=== PATIENT | female | born 1935 | race Caucasian/White ===

== ENCOUNTER 2020-03-06 14:53 | Inpatient (IN) | payer OTHER ==
[~2020-03-06] VITALS: Ht 165.1 cm; Wt 67.3 kg
[~2020-03-06 14:53] MED LIST: BACTRIM DS TAB1 EACH PO; BYSTOLIC 5 MG5 M1 PO; COZAAR 25 MG TA25 M1 PO; ELIQUIS5 MG PO; LIPITOR40 MG PO; METAMUCIL0.52 GM PO; METOPROLOL TART25 MG PO; NASAL SPRAY ORI30 ML; NEOFRIN NS; NITROFURANTOIN100 MG PO; PHENAZOPYRIDIN200 M2 PO; PREDNISONE 10 M10 M1; PREMARIN0.625 MG PO; PRILOSEC40 MG PO; PROTONIX40 M2; RESTORIL15 MG PO; VITAMIN D1000 UNI1 PO; ZOFRAN ODT4 MG PO
[2020-03-06 16:16] VITALS: BP 146/61
--- NOTE | 2020-03-06 17:49 | NUR ---
PATIENT ADMIT TO [facility] AT 1545 FROM [facility]. COVID POSITIVE. A/O X4. GENERLIZED WEAKNESS, VSS , AFEBRILE. LOOSE STOOL. WILL KEEP MONITOR.
[2020-03-06 20:34] VITALS: BP 124/63
--- NOTE | 2020-03-07 01:36 | NUR ---
ASSUMED PT CARE AROUND 1930. ALERT AND ORIENTED. VSS. NO S/S ACUTE DISTRESS NOTED OR REPORTED AT THIS TIME. WILL CONT TO MONITOR FOR ANY CHANGES IN CONDITION.
[2020-03-07 05:30] VITALS: BP 128/76
[2020-03-07 06:12] LABS: ALBUMIN 2.7 g/dL (3.4-5.0); CREATININE 0.7 mg/dL (0.6-1.0); PHOSPHORUS 2.4 mg/dL (2.5-4.9); POTASSIUM 3.5 mmol/L (3.5-5.1)
[2020-03-07 06:39] LABS: TSH 0.1 uIU/mL (0.358-3.740)
[2020-03-07 07:35] VITALS: BP 132/77
[2020-03-07 15:49] VITALS: BP 146/78
--- NOTE | 2020-03-07 18:06 | NUR ---
ASSUMED PATIENT CARE AT 0700. A/0 X4. NO N/V. WALKED IN ROOM WITH STEADY GAIT. PROGRESSING TOWARDS POC GOALS.
[2020-03-07 18:54] VITALS: BP 140/59
[2020-03-07 19:52] VITALS: BP 138/74
[2020-03-08 04:41] VITALS: BP 144/81
[2020-03-08 05:42] LABS: ABSOLUTE NEUTROPHILS 7.9 thou/uL (1.4-8.2); BASOPHILS 0.1 % (0.0-2.0); HEMATOCRIT 34.6 % (37.0-47.0); HEMOGLOBIN 11.5 gm/dL (12.0-15.0); LYMPHOCYTES 4.6 % (24.0-44.0); MCH 29.3 pg (26.0-34.0); MCHC 33.2 g/dL (28.0-37.0); MCV 88.3 fL (80.0-100.0); MONOCYTES 3.9 % (1.0-8.0); PLATELET COUNT 123 thou/uL (150-400); POLYS 91.4 % (36.0-66.0); RBC 3.92 mil/uL (4.20-5.00); RDW 14.5 % (10.5-14.5); WBC 8.6 thou/uL (4.0-11.0)
[2020-03-08 06:13] LABS: ALBUMIN 2.6 g/dL (3.4-5.0); CREATININE 0.7 mg/dL (0.6-1.0); POTASSIUM 3.3 mmol/L (3.5-5.1); TOTAL BILIRUBIN 0.4 mg/dL (0.2-1.0); TOTAL PROTEIN 6.1 g/dL (6.4-8.2)
--- NOTE | 2020-03-08 06:33 | NUR ---
PT HAS SOME CONFUSION OVERNIGHT AND VERY IMPULSIVE. PT WILL EXIT BED WITHOUT ASSISTANCE. LAKHANI IN PLACE. PT HAD X1 BOWEL INCONT DURING LATE EVENING. POC WITH IVF.
[2020-03-08 07:54] VITALS: BP 134/59
[2020-03-08 10:11] LABS: FIBRINOGEN 464.7 mg/dL (210-360); INR 1.1; PROTIME 11.3 Seconds (9.3-11.4)
--- NOTE | 2020-03-08 14:14 | NUR ---
INITIAL ASSESSMENT: MIRELLA reviewed chart and spoke with nursing and attending physician. Pt was transferred to [facility] from [place]. Pt placed in Enhanced Isolation due to COVID-19. Pt is afebrile and not requiring O2. Pt is on IV steroids. Discharge home with is anticipated for tomorrow. MIERLLA spoke with pt via phone. Pt appears to be alert/orientated. Pt reports that she has been staying with her sister in [place] for awhile. Prior to admission, pt was not using any DME for ambulation. Pt's sister's home does not have any stairs to navigate. Pt has used HH in the past, and is agreeable with referral to . SW provided options for HH companies. No preference voiced. MIRELLA verified pt's cell phone number for HH to call to get her sister's street address. MIRELLA faxed referral to [facility] for review. [facility] is able to accept pt on service when she is discharged. Pt states she will likely need transportation home when discharged. MIRELLA discussed with Director of Case Mgmt, who approved arranging transportation. Transportation to be arranged through [facility]. Finalized discharge orders/summary will need to be faxed to when available. Contact info for hH placed in pt's discharge summary. MIRELLA is following to assist as needed with discharge planning. [facility]-- [employer] [facility]--
[2020-03-08 14:28] VITALS: BP 134/59
[2020-03-08 15:12] VITALS: BP 131/69
--- NOTE | 2020-03-08 18:19 | NUR ---
ASSUMED PATIENT CARE AT 0700. A/0 X3. CONFUSED SOMETIMES. AMBULATED IN ROOM GAIT STEADY. LESVIA MASON'D. +SLOWLY TOWARDS POC GOALS.
[2020-03-08 19:47] VITALS: BP 126/55
[2020-03-09 02:07] VITALS: BP 130/63
[2020-03-09 05:12] LABS: CALCIUM 7.9 mg/dL (8.5-10.1); CREATININE 0.7 mg/dL (0.6-1.0); POTASSIUM 3.3 mmol/L (3.5-5.1)
[2020-03-09 08:02] VITALS: BP 137/67
[2020-03-09] MEDS ORDERED: LOPERAMIDE 2 MG2 M1 PO (08:54)
[2020-03-09 14:46] VITALS: BP 147/83
[2020-03-09 15:46] VITALS: BP 143/73
--- NOTE | 2020-03-09 19:27 | NUR ---
RN ASSUMED PT'S CARE AT 0700AM, PT IS A&OX2 ( PERSON AND PLACE ), PT CAN FOLLOW COMMANDS, PT WAS PLAN TO DC HOME WITH HOME HEALTH , RN HAD SET UP TRATSPORTATION TO [facility] PT AT 1700PM, BUT PT STARTS FEVER TEMP 102.2F (O) DIARRHEA AND N/V , RN HAS CALL DR , NEW ORDER RECEIVED, DISCHARGE PT IS ON HOLE, RN HAS REPORTED TO NEXT SHIFT TO FOLLOW DR ORDER AND KEEP EYE ON PT.
[2020-03-09 20:31] VITALS: BP 127/69
[2020-03-10 03:56] VITALS: BP 130/68
[2020-03-10 06:38] LABS: URINE BILIRUBIN NEGATIVE (Negative); URINE BLOOD TRACE (Negative); URINE CLARITY CLEAR; URINE COLOR YELLOW; URINE GLUCOSE-RANDOM* NEGATIVE (Negative); URINE KETONES 1+ (Negative); URINE LEUKOCYTES-REFLEX NEGATIVE (Negative); URINE NITRITE-REFLEX NEGATIVE (Negative); URINE PROTEIN (DIPSTICK) TRACE (Negative); URINE UROBILINOGEN 0.2 E.U./dl (0.2-1.0)
[2020-03-10 07:27] VITALS: BP 148/64
[2020-03-10 13:39] LABS: BASOPHILS 0.1 % (0.0-2.0); HEMATOCRIT 34.3 % (37.0-47.0); HEMOGLOBIN 11.6 gm/dL (12.0-15.0); LYMPHOCYTES 4.1 % (24.0-44.0); MCH 29.4 pg (26.0-34.0); MCHC 33.7 g/dL (28.0-37.0); MCV 87.1 fL (80.0-100.0); MONOCYTES 5.2 % (1.0-8.0); PLATELET COUNT 148 thou/uL (150-400); POLYS 90.6 % (36.0-66.0); RBC 3.94 mil/uL (4.20-5.00); RDW 14.6 % (10.5-14.5); WBC 9.9 thou/uL (4.0-11.0)
[2020-03-10 13:58] LABS: ALBUMIN 2.3 g/dL (3.4-5.0); CALCIUM 7.9 mg/dL (8.5-10.1); CREATININE 0.8 mg/dL (0.6-1.0); POTASSIUM 3.3 mmol/L (3.5-5.1); TOTAL BILIRUBIN 0.6 mg/dL (0.2-1.0)
[2020-03-10 15:09] VITALS: BP 145/65
--- NOTE | 2020-03-10 18:25 | NUR ---
RN ASSUMED PT'S CARE AT 0700AM, PT IS A&OX2 ( PERSON AND PLACE ), PT HAS FEVER AT YESTODAY AND TODAY, PT STARTS IV ABX BY ID DR ORDER, PT IS CONTINUING O2 2L/MIN/NC, PT 'S DICHARGE ORDER HAS DC TODAY, RN HAS REPORTED DR ABOUT PT'S POOR EATING AT MEALTIME, PT HAS TALKING TO THE DR AND SHE WANTS DC TO SNF , PT'S DIARRHEA HAS IMPROVED.
[2020-03-10 20:04] VITALS: BP 106/54
[2020-03-11 05:33] VITALS: BP 152/81
--- NOTE | 2020-03-11 07:50 | NUR ---
Pt. diaphoretic at beginning of shift stating her fever broke. Bed linens changed. Cont. on enhanced precaution , max temp of 99.9 this am.Maintaining O2 sat in the low 90's on 3.5L/NC. No loose bm this shift.Up with SBA when using commode. She slept well during the night.
[2020-03-11 08:05] VITALS: BP 160/68
[2020-03-11 09:20] LABS: HEMATOCRIT 38.3 % (37.0-47.0); HEMOGLOBIN 12.8 gm/dL (12.0-15.0); MCH 29.3 pg (26.0-34.0); MCHC 33.3 g/dL (28.0-37.0); RBC 4.36 mil/uL (4.20-5.00); RDW 14.8 % (10.5-14.5); WBC 7.7 thou/uL (4.0-11.0)
[2020-03-11 09:35] LABS: CALCIUM 8.3 mg/dL (8.5-10.1); CREATININE 0.8 mg/dL (0.6-1.0); POTASSIUM 3.4 mmol/L (3.5-5.1)
[2020-03-11 12:05] VITALS: BP 134/93
--- NOTE | 2020-03-11 15:11 | NUR ---
MIRELLA reviewed chart and spoke with nursing and attending physician. Pt remains in Enhanced Isolation due to COVID-19. Pt has been febrile and is on 3L of O2. Pt is on IV abx and IV steroids. MIRELLA received call from pt's son, Dickson, requesting pt go to a SNF prior to returning home. Pt's sister, is currently in the hospital for COVID. Pt's sister has been to [facility] recently and that would be the preference for SNF. MIRELLA also discussed alternate SNFs accepting COVID positive pts. MIRELLA spoke with pt via phone to discuss discharge. Pt is agreeable with plan for SNF and does not have a preference of a facility. MIRELLA faxed referral to [facility] and spoke with Paulina, who states they are not accepting any admissions at this time. MIRELLA faxed referral to [facility] and left voice message for Daria in admissions. Awaiting call back at this time. MIRELLA updated pt and her son, Dickson. MIRELLA is following to assist as needed with discharge planning.
[2020-03-11 15:47] VITALS: BP 137/77
[2020-03-11 16:05] VITALS: BP 137/77
--- NOTE | 2020-03-11 18:27 | NUR ---
PT CARE ASSUMED AT 0700. ASSESSMENTS CHARTED. MEDICATION CHARTED. RH IV. PACEMAKER. NO TELEMETRY. PT UTILIZES BSC; NO DIARRHEA. SBA. COVID POSITIVE. C.DIFF TEST WAS CANCELLED. SMALL FEVER IN AM; 100.5; ACETAMINOPHEN GIVEN; FEVER NOT REPEATED REST OF DAY. PT HAS SMALL APPETITE FOR MEALS, HOWEVER SHE DOES SNACK THROUGHOUT THE DAY.
[2020-03-11 20:36] VITALS: BP 140/67
[2020-03-12 02:06] LABS: THYROID PEROXIDASE AB 7 IU/mL (0-34)
[2020-03-12 03:55] VITALS: BP 133/64
[2020-03-12 06:28] LABS: ABSOLUTE NEUTROPHILS 7.3 thou/uL (1.4-8.2); BASOPHILS 0.2 % (0.0-2.0); HEMATOCRIT 36.8 % (37.0-47.0); HEMOGLOBIN 12.2 gm/dL (12.0-15.0); LYMPHOCYTES 4.1 % (24.0-44.0); MCV 87.8 fL (80.0-100.0); MONOCYTES 5.9 % (1.0-8.0); PLATELET COUNT 189 thou/uL (150-400); POLYS 89.8 % (36.0-66.0); RBC 4.19 mil/uL (4.20-5.00); RDW 14.7 % (10.5-14.5); WBC 8.1 thou/uL (4.0-11.0)
[2020-03-12 06:54] LABS: CALCIUM 8.4 mg/dL (8.5-10.1); CREATININE 0.8 mg/dL (0.6-1.0); INR 1.3; POTASSIUM 3.4 mmol/L (3.5-5.1); PROTIME 13.4 Seconds (9.3-11.4); TOTAL BILIRUBIN 0.7 mg/dL (0.2-1.0); TOTAL PROTEIN 6.2 g/dL (6.4-8.2)
[2020-03-12 07:29] VITALS: BP 142/62
--- NOTE | 2020-03-12 07:31 | NUR ---
Pt. requested sleep med last night. MEN'S DESIGNER notified and order received. Temazepam given and stated she slept well last night. COVID swab sent and tested positive. MEN'S DESIGNER and line construction supervisor notified. Pt. recieved first dose of remdesivir last night.Explained to pt. use and side efects of the drug and verbalized understanding. Max temp this shift 99.8 orally. Maintaining O2 sat in the low 90's on 3L/NC. She does get short of breath with exertion. Up with SBA to commode to void. No loose bm this shift. She gets tired after using commode and wants to go back to bed right away and rest. Unable to collect sputum sample due to MEN'S DESIGNER cough. New IV placed on right FA at beginning of shift.
--- NOTE | 2020-03-12 08:25 | HC ---
[facility] [place] [address] [place] [address] CONSULTATION Name: MONROE RANGEL Room #: 359-P ADM IN M.R.#: [id number] Admission: 03/06/20 Attend Phys: Abner Figueredo Discharge: Date of : 31 Report #: [id number] THIS REPORT FOR: cc: Teresa Siddiqui MD, J. Christopher MD Al-Mubaslat, Ahmad MD ~ DATE OF SERVICE: 03/11/2020 ENDOCRINE CONSULTATION CONSULTING PHYSICIAN: Dr. Figueredo. REASON FOR CONSULTATION: Hyperthyroidism. HISTORY OF PRESENT ILLNESS: This is an 84-year-old female patient who presented with weakness, nausea and vomiting for a few days prior to her admission, she had been diagnosed with COVID-19 a week prior to admission as well and was hospitalized at [facility] at that time. The patient was found to have COVID pneumonitis and was admitted for further care and monitoring. During her hospital stay, the patient was noted to report issues of palpitations, diarrhea, recurrent nausea and vomiting and was investigated for hyperthyroidism, which she proved to have. The patient denied having ever been diagnosed with any form of thyroid dysfunction in the past, but believes her sister has a kind of thyroid disease, although she could not elaborate further on this. She believes that she had lost weight over the past few months unintentionally. She does not have particular issues with anxiety, nervousness, new sleep difficulties or heat intolerance. She has not appreciated neck fullness, pain, discomfort or compressive symptoms. REVIEW OF SYSTEMS: CONSTITUTIONAL: Fatigue, tiredness, weight loss. HEENT: Negative for sore throat, sinus pain or ear drainage. PULMONARY: Shortness of breath, cough. No hemoptysis. CARDIAC: Intermittent issues with palpitations, but no chest pain, syncope or presyncope. GASTROINTESTINAL: Intractable nausea, vomiting, and abdominal discomfort. NEUROLOGY: Occasional tremors. Negative for loss of consciousness, seizure activity or severe frequent headaches. Otherwise, review of systems noncontributory unless mentioned in HPI. PAST MEDICAL HISTORY: Hypertension, history of pacemaker placement due to atrial fibrillation, history of stroke in 2017, breast lump that proved benign on lumpectomy, valve repair surgery in 2018, and hyperlipidemia. [address] [address] CONSULTATION Name: MONROE RANGEL Room #: 359-P ADM IN M.R.#: [id number] Admission: 03/06/20 Attend Phys: Abner Figueredo Discharge: Date of : 31 Report #: [id number] OUTPATIENT MEDICATIONS: Include Eliquis 5 mg b.i.d., metoprolol 25 mg b.i.d., Cozaar 25 mg daily, Lipitor 40 mg daily. ALLERGIES: PENICILLIN. FAMILY HISTORY: Her sister has thyroid disease. SOCIAL HISTORY: She denies use of tobacco, alcohol or illicit drugs. PHYSICAL EXAMINATION: GENERAL: Pleasant female patient who is not in apparent pain or distress. VITAL SIGNS: Blood pressure is 160/68 mmHg, heart rate is 72 beats per minute, respiration 18 per minute, temperature 38.1 degrees Celsius. CONSTITUTIONAL: The patient is lying in bed supine, appears comfortable, not in pain or distress. HEENT: Anicteric sclerae. Intact extraocular motions. NECK: Supple, without JVD. Thyroid gland is palpable, smooth in texture, nontender, non-nodular. No lymphadenopathy. CHEST: Noted for moderate entry bilaterally with scattered rales. HEART: Regular rate and rhythm with a systolic ejection murmur. ABDOMEN: Soft, lax. No guarding. Active bowel sounds. EXTREMITIES: Lower extremity exam, trace ankle edema bilaterally. NEUROLOGIC: Awake, alert and oriented to time, place and person. The remainder of her examination is largely nonfocal. PSYCHIATRIC: Pleasant, interactive. Normal mood and affect. LABORATORY DATA: Sodium 133, potassium 3.4, chloride 98, CO2 of 26, anion gap 9, BUN 13, creatinine 0.8, AST 29, lipase 53, total bilirubin 0.6, calcium 8.3, phosphorus 2.4, alkaline phosphatase is 64, ALT 19, total protein 6.0, albumin 2.3, EGFR 68. Free T4 1.8, free T3 1.07. CRP 38.6, INR 1.1. White blood count 7.7, hemoglobin 12.8, hematocrit 38.3, platelets 162. Thyroid stimulating immunoglobulins were ordered and are pending. Thyroid peroxidase antibodies were ordered and are pending. TSH is 0.151. ASSESSMENT AND PLAN: 1. Hyperthyroidism. I certainly agree that the patient has thyroid function indices that are suggestive of hyperthyroidism and has a clinical outlook that could be seen in the same setting. That said, I do not pursue an object to initiating methimazole therapy at the current dose of 5 mg t.i.d.; however, while awaiting her serology studies. That said, the patient still has a fair chance of her thyroid function studies being reflective of a combination of high dose steroid use with a resultant TSH suppression as well as sick euthyroid changes due to her acute and significant illness over the past couple of weeks. [facility] [address] [place] [address] CONSULTATION Name: MONROE RANGEL Room #: 359-P ADM IN M.R.#: [id number] Admission: 03/06/20 Attend Phys: Abner Figueredo Discharge: Date of : 33 Report #: [id number] Long-term treatment recommendations will be based on these results. 2. Hypertension. The patient's level of blood pressure control is marginal, I will defer further therapeutic recommendations and adjustments to the primary hospital team. I appreciate this consultation by Dr. Figueredo. <ELECTRONICALLY SIGNED> By: Jeffy Jaimes MD 03/12/20 0825 [id number] Jeffy Jaimes MD /nt
--- NOTE | 2020-03-12 08:25 | HC ---
[facility] [place] [address] [place] [address] CONSULTATION Name: MONROE RANGEL Room #: 359-P ADM IN M.R.#: [id number] Admission: 03/06/20 Attend Phys: Abner Figueredo Discharge: Date of : 33 Report #: [id number] THIS REPORT FOR: cc: Teresa Siddiqui MD, J. Christopher MD Al-Mubaslat, Ahmad MD ~ DATE OF SERVICE: 03/11/2020 ENDOCRINE CONSULTATION CONSULTING PHYSICIAN: Dr. Figueredo. REASON FOR CONSULTATION: Hyperthyroidism. HISTORY OF PRESENT ILLNESS: This is an 84-year-old female patient who was admitted earlier last week due to issues of progressive weakness as well as intractable nausea and vomiting. She had been diagnosed with COVID-19 the week prior and was admitted briefly to [facility]. On presentation, she was diagnosed with COVID pneumonitis and was admitted for further care and monitoring. During her hospital stay, the patient complained of recurrent difficulties with palpitations, tremors, intractable nausea and vomiting as well as weight loss that is undefined and unintentional over the past few months. However, this was not associated with anxiety, nervousness, emerging sleep difficulties or heat intolerance. Further investigation indicated that she is hyperthyroid. The patient denies having had a prior personal history of thyroid disease, but notes that her sister has some form of thyroid disorder, although she could not be more specific. She does not experience any degree of neck fullness, pain, or compressive symptoms. REVIEW OF SYSTEMS: CONSTITUTIONAL: Fatigue, tiredness, unintentional weight loss over the past few months. HEENT: Negative for sore throat, sinus pain or ear drainage. PULMONARY: Negative for hemoptysis, noted for shortness of breath and intermittent cough. CARDIAC: Intermittent palpitations, but no chest pain. GASTROINTESTINAL: Intractable nausea, vomiting, abdominal discomfort. NEUROLOGY: Intermittent tremors, occasional dizziness. No loss of consciousness or seizure activity. Otherwise, review of system is noncontributory other than those mentioned in HPI. [facility] [address] [place] [address] CONSULTATION Name: MONROE RANGEL ANN Room #: 359-P [facility] IN M.R.#: [id number] Admission: 03/06/20 Attend Phys: Abner Figueredo Discharge: Date of : 33 Report #: [id number] PAST MEDICAL HISTORY: 1. Hypertension. 2. Atrial fibrillation, status post pacemaker placement. 3. History of heart valve repair surgery. 4. History of urinary tract infection. 5. Recent COVID-19 diagnosis. 6. Benign breast lump removed. 7. Stroke in 2017. 8. Hyperlipidemia. OUTPATIENT MEDICATIONS: Eliquis 5 mg b.i.d., metoprolol 25 mg b.i.d., losartan 25 mg daily, atorvastatin 40 mg daily. ALLERGIES: PENICILLIN. FAMILY HISTORY: Noncontributory other than her sister having had a form of thyroid disease. SOCIAL HISTORY: Denies use of tobacco, alcohol or illicit drugs. PHYSICAL EXAMINATION: GENERAL: Pleasant female patient not in apparent pain or distress, but appears fatigued and somewhat lethargic. VITAL SIGNS: Heart rate is 72 beats per minute, respirations 18 per minute, temperature 38.1 degrees Celsius, blood pressure 160/68 mmHg. CONSTITUTIONAL: She is lying down in bed, appears comfortable, not in apparent distress. HEENT: Anicteric sclerae. Intact extraocular motions. NECK: Supple without JVD, carotid bruits or lymphadenopathy. Thyroid gland is palpable, smooth in texture, nontender, no lymphadenopathy. CHEST: Noted for moderate air entry bilaterally with scattered rales. No wheezes or crackles. HEART: Regular rate and rhythm with a systolic ejection murmur. ABDOMEN: Soft, lax. No guarding. Active bowel sounds. EXTREMITIES: Lower extremity exam, trace ankle edema. NEUROLOGIC: Awake, alert and oriented to time, place and person. The remainder of her examination is nonfocal. PSYCHIATRIC: Pleasant, interactive. Normal mood and affect. Normal thought content. LABORATORY DATA: Sodium 133, potassium 3.4, chloride 98, CO2 of 26, anion gap 9, BUN 13, creatinine 0.8, glucose 126, AST 29, lipase 53, total bilirubin 0.6, calcium 8.3, phosphorus 2.4, alkaline phosphatase 6.4, ALT 19, total protein ____, albumin 2.3, EGFR 68, LDH 252. BNP 1913. Free T4 high at 1.8, free T3 [address] [address] CONSULTATION Name: MONROE RANGEL Room #: 359-P ADM IN M.R.#: [id number] Admission: 03/06/20 Attend Phys: Abner Figueredo Discharge: Date of : 33 Report #: [id number] low at 1.07. INR 1.1. White blood count 7.7, hemoglobin 12.8, hematocrit 38.3, platelets 162. TSH 0.151. ASSESSMENT AND PLAN: 1. Hyperthyroidism. The patient's thyroid function indices could certainly be consistent with hyperthyroidism, although could also be seen in the setting of sick euthyroid syndrome, especially when considering her somewhat prolonged illness and progressive weakness as well as the active use of steroid therapy, all of which can lower her TSH. However, in the setting of significant cardiac history, active symptoms that could be associated with hyperthyroidism, I believe that it would be reasonable to initiate therapy with low dose methimazole therapy, which had already been started at 5 mg t.i.d. while we await her thyroid serology studies. Both TSI and TPO antibody levels have been ordered and are pending at this point. These would be valuable in helping determine future management plans for this patient. 2. Hypertension. The patient's level of blood pressure control is inadequate. I will defer further therapeutic adjustments and changes to the Primary Hospital Medicine Team. I appreciate this consultation by Dr. Figueredo. <ELECTRONICALLY SIGNED> By: Jeffy Jaimes MD 03/12/20 0825 [id number] Jeffy Jaimes MD /nt
--- NOTE | 2020-03-12 10:15 | NUR ---
PT ALERT AND ORIENTED TIMES FOUR. VSS. PT DENIES PAIN. STATES SHE GETS SOA WHEN MOVING AROUND. PT TOLERATES MEDS, BUT HAS A POOR APPETITE. PT UP WITH ASSIST. WILL CONTINUE TO MONITOR.
--- NOTE | 2020-03-12 13:41 | NUR ---
MIRELLA reviewed chart and spoke with nursing and attending physician. Pt remains in Enhanced Isolation due to COVID-19. Pt is febrile and on 5L of O2. Pt is on IV abx and IV steroids. Pt has started course of Remdesivir. MIRELLA spoke with Daria, family services coordinator at [facility], who states they are able to accept pt. Discharge anticipated later this week or over the weekend. MIRELLA placed call to pt's room. No answer. MIRELLA spoke with pt's son, Dickson, via phone to provide update. Dickson is aware and agreeable with discharge plan. MIRELLA is following to assist as needed with discharge planning.
[2020-03-12 15:16] VITALS: BP 135/64
[2020-03-12 19:16] VITALS: BP 129/65
[2020-03-12 21:26] LABS: BE(vivo) 0.1 mmol/L (-2 to +3); HCO3 22.9 mmol/L (22.0-26.0); PCO2 31.2 mmHg (35.0-45.0); PO2 60.8 mmHg (80.0-100.0); pH 7.483 (7.360-7.450); sO2 93.3 % (92.0-98.0)
--- NOTE | 2020-03-12 22:45 | NUR ---
Received pt. on 100% NRB with O2 sat in the mid 90's. She does get short of breath with minimal exertion and desat easily. Dr. Christine notified of ABG results. RT placed pt. on Optiflow ( 50 L/ 100% ). Dr. Christine made aware and ok with BIPAP prn. Pt. placed on telemetry. She requested sleep med , temazepam given. Son Dickson updated on pt. condition.
[2020-03-13 03:50] VITALS: BP 115/66
--- NOTE | 2020-03-13 05:36 | NUR ---
Pt. slept fair after sleep med given then once she woke up she slept intermittently. Maintainining O2 sat in the mid to upper 90's on Optiflow 50L/ 100% though she desats very easily when cannula slides off her nose when turning to her side. She stated she is not sure if she can handle being on the Optiflow today due to pressure in her ear that she can feel and makes her uncomfortable. Up with assist to commode x1 , very weak and unsteady. Bed alarm on, she calls appropriately. She has been afebrile. Still has ASSEMBLER CHASSIS cough , unable to collect sputum sample.
[2020-03-13 06:25] LABS: CALCIUM 7.6 mg/dL (8.5-10.1); CREATININE 0.6 mg/dL (0.6-1.0); POTASSIUM 3.5 mmol/L (3.5-5.1)
[2020-03-13 07:08] LABS: THYROID STIMULATING IG < 0.10 IU/L (0.00-0.55)
[2020-03-13 08:03] VITALS: BP 128/65
--- NOTE | 2020-03-13 15:49 | NUR ---
SW reviewed chart and spoke with nursing and attending physician. Pt remains in Enhanced Isolation due to COVID-19. Pt is afebrile and requiring optiflow. Pt placed on bipap. Pt is on IV abx and IV steroids. Pt is on IV lasix. Pt is completing course of Remdesivir. MIRELLA received call from Daria at [facility]. Update provided. MIRELLA is following to assist as needed with discharge planning.
--- NOTE | 2020-03-13 18:47 | NUR ---
ASSUMED PATIENT CARE AT 0700. A/O X4. SWITCH TO BIPAP 100% FIO2 IN NOON. POOR APPETITE, INSERTED LAKHANI CATH AFTER BLADDER SACN 701ML. NOT TOWARDS POC GOALS.
[2020-03-13 19:28] VITALS: BP 142/79
[2020-03-14 03:13] VITALS: BP 131/63
[2020-03-14 07:49] VITALS: BP 127/61
[2020-03-14 09:14] LABS: CALCIUM 7.9 mg/dL (8.5-10.1); CREATININE 0.8 mg/dL (0.6-1.0); POTASSIUM 3.4 mmol/L (3.5-5.1)
[2020-03-14 09:21] LABS: ALBUMIN 1.7 g/dL (3.4-5.0); DIRECT BILIRUBIN 0.7 mg/dL (<0.1-0.2); TOTAL BILIRUBIN 1.2 mg/dL (0.2-1.0); TOTAL PROTEIN 5.4 g/dL (6.4-8.2)
[2020-03-14 15:38] VITALS: BP 131/45
--- NOTE | 2020-03-14 16:10 | NUR ---
SW reviewed chart and spoke with nursing and attending physician. Pt remains in Enhanced Isolation due to COVID-19. Pt is afebrile and on bipap. Pt is on IV abs and IV steroids. Pt is completing course of Remdesivir. MIRELLA provided update to Daria at [facility]. MIRELLA is following to assist as needed with discharge planning.
[2020-03-14 18:12] LABS: BE(vivo) 0.3 mmol/L (-2 to +3); HCO3 23.2 mmol/L (22.0-26.0); PCO2 31.7 mmHg (35.0-45.0); PO2 80.9 mmHg (80.0-100.0); pH 7.482 (7.360-7.450); sO2 96.8 % (92.0-98.0)
--- NOTE | 2020-03-14 19:10 | NUR ---
ASSUMED PATIENT CARE AT 0700. A/O X3. ON BIPAP WITH 80% FIO2. DESAT WITH ACTIVITY. POOR APPETITE. NOT TOWARDS POC GOALS.
[2020-03-14 19:24] VITALS: BP 145/66
--- NOTE | 2020-03-14 20:34 | NUR ---
CONSULTED TO PLACE A PICC FOR A PATIENT NEEDING IV NUTRITION AND MULTIPLE IV MEDS. ORDER AND CONSENT NOTED. THE PROCEDURE WELL BENIFITS AND RISKS FOR INFECTION AND DVT DISCUSED AND SHE VERBALIZED UNDERSTANDING. THE RIGHT UPPER ARM BASILIC WAS WIDLEY PATENT. A #5F TRIPLE LUMEN POWER PICC WAS PLACED AFTER A BEDSIDE TIMEOUT. LINE WAS TRIMMED TO 39CM AND ADVANCED WITHOUT DIFFICULTY. A STAT CHEST XRAY WAS ORDERED TO CONFIRM PLACEMENT
--- NOTE | 2020-03-14 23:08 | NUR ---
PT CALLED NURSE TO STATE SHE CAN NOT SLEEP, SHE CAN NOT BREATHE AND SHE CANT DO THIS ANYMORE. RESPIRATORY CONTACTED RE PTS CONCERNS. RESPIRATORY STATED PT CAN RETURN TO NC BUT THAT SHE IS A FULL CODE AND NEEDS THE BENEFITS OF THE BIPAP. PROVIDER CALLED AND GIVEN UPDATE. PT DID HAVE RESTORIL AND MELATONIN. NURSE TALKED WITH PT REGARDING CONTINUING WITH BIPAP TONIGHT AND TALKING WITH DR IN THE AM. DISCUSSED WITH PT THAT IF SHE RETURNS TO WEARING JUST THE NC SHE MAY NOT BE ABLE TO CONTINUE BREATHING WELL. PT ASKED IF SHE MIGHT , NURSE SAID YES. PT STATED SHE WAS READY BUT SHE WANTS TO MAKE SURE SHE WOULD BE ASSISTED WITH BEING COMFORTABLE. NURSE TOLD PT SHE WOULD SHARE THIS WITH THE PROVIDER.
--- NOTE | 2020-03-15 00:15 | NUR ---
PT ASKING FOR A DRINK OF WATER AND CONTINUES TO STATE THAT SHE IS READY TO .
[2020-03-15 02:13] VITALS: BP 148/73
--- NOTE | 2020-03-15 06:21 | NUR ---
PT SATURATING 86% ON BIPAP, PT WAS DROWSY AND AROUSED AND ENGAGED BY STAFF, SATURATION INCREASED TO 95%. RESPIRATORY UPDATED RE THIS INFORMATION.
[2020-03-15 06:59] LABS: ALBUMIN 1.5 g/dL (3.4-5.0); ALBUMIN 1.6 g/dL (3.4-5.0); CALCIUM 7.7 mg/dL (8.5-10.1); CREATININE 0.5 mg/dL (0.6-1.0); DIRECT BILIRUBIN 1.1 mg/dL (<0.1-0.2); MAGNESIUM 2.1 mg/dL (1.8-2.4); POTASSIUM 3.5 mmol/L (3.5-5.1); TOTAL BILIRUBIN 1.8 mg/dL (0.2-1.0); TOTAL PROTEIN 4.9 g/dL (6.4-8.2)
[2020-03-15 08:06] VITALS: BP 149/74
--- NOTE | 2020-03-15 09:56 | NUR ---
Nutrition: if POC is aggressive, TPN goal rate suggested at 65 mL/hr
--- NOTE | 2020-03-15 15:21 | NUR ---
ASSUMED PATIENT CARE AT 0700. A/0 X3.PATIENT WAS ON BIPAP A FEW DAYS. PATIENT TOLD RN I DONT WANT THIS. I WANT GO WITH GOD. DR HERRERA AT BEDSIDE TOAL TO PATIENT AND CALLED SON BISI. DNR MADE AND ALL MEDS DC'D. RN NOTIFIED DR CURTIS. DR CURTIS ORDERED MORPHINE GTT. PAYIENT SWITCHED TO NRB NOW THEN WILL TRANSFER TO NE. RT ALSO NOTIFIED.
--- NOTE | 2020-03-15 15:45 | NUR ---
MIRELLA reviewed chart and spoke with nursing and attending physician. Pt remains in Enhanced Isolation due to COVID-19. Pt is afebrile and requiring bipap support. Pt is on IV abx and IV steroids. Pt completing course of Remdesivir and has been started on TPN. Palliative care physician consulted to discuss goals of care with pt and her son. MIRELLA updated Daria at [facility]. MIRELLA is following to assist as needed with discharge planning.
--- NOTE | 2020-03-16 03:31 | NUR ---
BEGINNING OF SHIFT. PT RESTING IN BED, NOT RESPONDING TO TOUCH OR NAME. NOTED INCREASE IN RR AND AIR HUNGER PRN ATIVAN PROVIDED. MORPHINE DRIP INCREASED AT 1999 4.5, 2130 5, 2199 5.5, PROVIDER UPDATED RE GROANING AND ONE TIME INCREASE ORDER 2215 TO 6.5. 2230 INCREASED TO 7. O2 PER NC 3L MOUTH MASK. LAKHANI TO DD. BED ALARM ON.
--- NOTE | 2020-03-16 04:59 | NUR ---
INCREASED AIR HUNGER MORPHINE INCREASED TO 7.5.
--- NOTE | 2020-03-16 15:56 | NUR ---
REMAINS ON COMFORT CARE. MORPHINE GTT RUNNING AT 7.5MG/HR. APPEARS COMFORTABLE.
--- NOTE | 2020-03-16 23:42 | NUR ---
PT REMAINS ON COMFORT CARE. MORPHINE DRIP. MASK OXYGEN 2L. PT HAS SHALLOW BREATHING DIMINISHED LUNG SOUNDS, POOR PERIPHERAL PULSES, PALE, BLE EDEMA. LAKHANI TO WILLIAM. BED ALARM ON.
--- NOTE | 2020-03-17 02:41 | NUR ---
INCREASED RR, MORPHINE DRIP INCREASED TO 8.
--- NOTE | 2020-03-17 04:05 | NUR ---
INCREASED AIR HUNGER, MORPHINE DRIP INCREASED TO 8.5.
[2020-03-17 07:36] VITALS: BP 103/50
[2020-03-17 12:23] VITALS: BP 102/47
--- NOTE | 2020-03-17 17:41 | NUR ---
ASSUMED CARE OF PT AT SHIFT CHANGE. ASSESSMENT CHARTED. PT CONTINUES ON COMFORT CARE. 2L O2 MASK. MORPHINE DRIP AT 8.5. LITTLE CHANGE TODAY. RR 8-10. WILL CONTINUE TO MONITOR AND FOLLOW POC.
--- NOTE | 2020-03-18 02:18 | NUR ---
PT REMAINS ON COMFORT CARE. 02 2L MASK. MORPHINE DRIP 8, DRIP INCREASED AFTER NOTED USE OF ACCESSORY MUSCLES IN NECK. RR 8. BED ALARM ON.
--- NOTE | 2020-03-18 03:39 | NUR ---
INCREASED MORPHINE DRIP TO 9.5 NOTED USE OF NECK MUSCLES WITH AIR HUNGER AND PULSATING CAROTID.
[2020-03-18 07:51] VITALS: BP 125/50
--- NOTE | 2020-03-18 09:20 | NUR ---
Nutrition: Pt is comfort care. RD will defer further evals.
--- NOTE | 2020-03-18 17:53 | NUR ---
MORPHINE GTT PER COMFORT CARE ORDERS, SPOKE WITH PT'S SON AND UPDATED HIM ON PT'S CONDITIONS, WILL CALL IF ANY CHANGE, NO OUTPUT IN PT'S [place].
[2020-03-18 19:26] VITALS: BP 149/53
[2020-03-19 07:33] VITALS: BP 152/48
--- NOTE | 2020-03-19 07:36 | NUR ---
ASSUMED PT CARE AROUND 1930. UNRESPONSIVE ON MORPHINE DRIP. RESTING COMFORTABLY WITHOUT TACHYPNEA OR ACCESSORY MUSCLE USAGE FOR BREATHING. CARE TRANSFERRED TO AM RN AT THIS TIME.
--- NOTE | 2020-03-19 11:41 | NUR ---
PT ON COMFORT CARE, NON RESPONSIVE. VSS AT THIS TIME. MORPHINE GTT INFUSING. SPOKE WIH PT SON TO UPDATE ON CARE. WILL CONTINUE TO MONIOR.
--- NOTE | 2020-03-19 14:52 | NUR ---
MIRELLA reviewed chart and spoke with nursing. Pt remains in Enhanced Isolation due to COVID-19. Pt is afebrile and on O2 via NRB mask. Per nursing, pt is on morphine gtt. Palliative care physician consulted. Pt is a DNR. MIRELLA spoke with Daria at [facility] to provide update. Pt to remain on comfort care. Pt's son is being kept updated by nursing. MIRELLA is following to assist as needed.
== END 2020-03-19 18:25 | DRG 177 ==
LOC: 3W 14:53
PROVIDERS: Hospitalist; Internal Medicine Pulmonary Disease; Specialist; ADMIT Hospitalist; ATTEND Hospitalist
DX: U07.1 COVID-19 (principal); J12.9 Viral pneumonia, unspecified; J96.01 Acute respiratory failure with hypoxia; E87.1 Hypo-osmolality and hyponatremia; I48.21 Permanent atrial fibrillation; I10 Essential (primary) hypertension; E78.5 Hyperlipidemia, unspecified; E05.90 Thyrotoxicosis, unspecified without thyrotoxic crisis or storm; E87.6 Hypokalemia; K52.9 Noninfective gastroenteritis and colitis, unspecified; I95.9 Hypotension, unspecified; Z51.5 Encounter for palliative care; Z66 Do not resuscitate; E07.81 Sick-euthyroid syndrome; Z95.0 Presence of cardiac pacemaker; Z86.73 Personal history of transient ischemic attack (TIA), and cerebral infarction without residual deficits; Z88.0 Allergy status to penicillin; Z90.710 Acquired absence of both cervix and uterus; Z90.49 Acquired absence of other specified parts of digestive tract; R53.81 Other malaise
CPT/HCPCS: 10779; 10879; 27000